=== PATIENT | male | born 1995 | race Caucasian/White ===

== ENCOUNTER → 2020-01-28 18:01 | Outpatient (BNVA) | payer OTHER, SELFPAY | PROVIDERS: Visit Provider Nurse Practitioner Family | DX: Z20.2 Contact with and (suspected) exposure to infections with a predominantly sexual mode of transmission (principal) | CPT/HCPCS: 87491; 87591 ==

== ENCOUNTER 2024-09-10 19:12 | Emergency (ER) | payer OTHER, SELFPAY ==
[2024-09-10 19:20] VITALS: BP 130/84; PULSE 71; RESP 16; TEMP 36.7; O2SAT 95; BMI 48.7
--- NOTE | 2024-09-10 20:05 | XRR_ITS ---
PROCEDURE INFORMATION: Exam: XR Chest Exam date and time: 09/10/2024 8:34 PM Age: 28 years old Clinical indication: Cough; Additional info: Cough, inhaled a mixure of bleach and toilet stone cleaner TECHNIQUE: Imaging protocol: Radiologic exam of the chest. Views: 2 views. COMPARISON: No relevant prior studies available. FINDINGS: Lungs: Unremarkable. No consolidation. Pleural spaces: Unremarkable. No pleural effusion. No pneumothorax. Heart/Mediastinum: Unremarkable. No cardiomegaly. Bones/joints: Unremarkable. XR/XR chest 2V* [id number] IMPRESSION: 1. No acute findings. 2. No opacities. No interstitial markings. No pulmonary edema.
--- NOTE | 2024-09-10 20:58 | W.ED.SOB ---
HPI - SOB/Dyspnea General: Chief Complaint: Shortness of Breath/Dyspnea Stated Complaint: trouble breathing inhaled chemicals Time Seen by Provider: 09/10/24 19:30 Source: patient Mode of arrival: ambulatory Limitations: no limitations History of Present Illness: HPI Narrative: Patient is a 28-year-old male with a history of asthma that presents to the emergency department with shortness of breath and some coughing. Patient reports that he was cleaning a bathroom today, he put some bleach in the toilet and left it for several minutes. He returned, and forgot he up with the bleach in the toilet, and added some toilet bowl grave cleaner. He states the fumes irritated his lungs and he has been coughing and short of breath since then. He states the symptoms are starting to resolve now. He denies any fever or chills. He denies any nausea or vomiting. He denies any known wheezing but does report some shortness of breath that is improving. He presents to the emergency department for further evaluation and treatment. Associated symptoms: Deny abdominal pain, extremity pain, fever(s), nausea, polydipsia, polyuria, syncope or vomiting Related Data Previous Rx's ?Medication ?Instructions ?Recorded albuterol sulfate 90 mcg/actuation 2 inh inhalation .q4-6h PRN 09/10/24 aerosol inhaler (Ventolin HFA) shortness of breath or wheezing #6.7 grams Allergies Allergy/AdvReac Type Severity Reaction Status Date / Time No Known Allergies Allergy Verified 01/28/20 16:18 Review of Systems General: Reports: 10 or more systems reviewed and unremarkable except in HPI and below Const: Denies: fever(s) or chills Eyes: Denies: eye discharge or eye redness ENMT: Reports: throat pain (Mild, improving); Denies: hoarseness, swelling of lips/tongue or ear or mastoid pain Card: Reports: other (Generalized shortness of breath that is improving); Denies: syncope or pre-syncope Resp: Reports: dyspnea and non-productive cough; Denies: wheezing GI: Denies: abdominal pain, nausea or vomiting : Denies: flank pain or difficulty urinating Musc: Denies: neck pain, back pain or extremity pain Skin/Breast: Denies: rash or erythema Neuro: Denies: headache(s), numbness in extremities or weakness in extremities Psych: Denies: anxiety or depression Endo: Denies: polyuria or polydipsia Zoran/Lymph: Denies: easy bruising, easy bleeding or petechiae All/Imm: Denies: urticaria, throat swelling or tongue swelling PFSH ED PFSH: Medical History (Updated 09/10/24 @ 21:43 by LESLEY Toro) History of asthma Social History Smoking and tobacco/nicotine status: never used tobacco/nicotine Physical Exam Const: COMMON NORMALS: no acute distress and patient oriented x3 EXAM LIMITATIONS: no altered mental status GENERAL APPEARANCE: cooperative ORIENTATION/CONSCIOUSNESS: Yes awake HENMT: COMMON NORMALS: normocephalic, atraumatic, external ears normal and Normal external nose present HEAD & SCALP: normocephalic and atraumatic FACE & SINUS: normal facial exam NOSE: Normal external nose present EXTERNAL EAR: Yes external ears normal MOUTH: Normal oral and palatal mucosa present (No throat swelling), lip normal and tongue normal; no audible dysphonia, no drooling, no mouth trauma and no muffled voice Eye: COMMON NORMALS: conjunctivae normal CONJUNCTIVA: Yes conjunctivae normal Neck/C-Spine: COMMON NORMALS: full ROM and supple Resp: COMMON NORMALS: normal respiratory effort, No retractions and clear to auscultation bilaterally AUSCULTATION: clear to auscultation bilaterally, no crackles, no rales, no rhonchi and no wheezes (No wheezes at this time but the patient does report a hx of asthma) Cardio: COMMON NORMALS: regular rate and regular rhythm RATE: regular rate RHYTHM: regular rhythm : COMMON NORMALS: Yes no CVA tenderness BLADDER/KIDNEY EXAM: Yes no CVA tenderness Back/Pelvis: COMMON NORMALS: no CVA tenderness, no thoracic nor lumbar tenderness and thoraco-lumbar ROM normal Extremity: COMMON NORMALS: normal to inspection, full ROM, no calf tenderness and no pedal edema Neuro: COMMON NORMALS: patient oriented x3 Psych: COMMON NORMALS: mental status grossly normal Skin: COMMON NORMALS: no rashes or lesions noted, no jaundice and no petechiae GENERAL SKIN EXAM: no rashes or lesions noted Course Vital Signs: Vital signs: Vital Signs Temperature 98.0 F 09/10/24 19:20 Pulse Rate 71 09/10/24 19:20 Respiratory Rate 16 09/10/24 19:20 Blood Pressure 130/84 09/10/24 19:20 Pulse Oximetry 95 09/10/24 19:20 Oxygen Delivery Me thod Room Air 09/10/24 19:20 MDM - SOB/Dyspnea Medical Decision Making Patient was advised of the exam and imaging findings. He states he is feeling better as time goes on. He does not have any wheezing at this time but states he does continue to have episodes of shortness of breath. He does have a history of asthma but does not have an albuterol inhaler at home. He was advised we could write him for an inhaler to use as directed if he gets short of breath still. I did recommend that he use [id number] Mucinex with plenty of water to help bring up any phlegm that may be left behind. I also advised that he follow-up with a primary care provider for further evaluation and treatment and return to the emergency department with any worsening symptoms. The patient expressed understanding. Lab Data Labs/Radiology: Radiology Impressions Chest X-Ray 09/10/24 20:05 IMPRESSION: 1. No acute findings. 2. No opacities. No interstitial markings. No pulmonary edema. All radiology interpretation(s) finalized by discharge Critical Care Time Critical Care Time: Critical Care Time: No Discharge Plan Discharge Patient Disposition: Home Clinical Impression: Acute bronchitis due to chemical fumes Condition: Stable Prescriptions: New albuterol sulfate [Ventolin HFA] 90 mcg/actuation HFA aerosol inhaler 2 inh inhalation .q4-6h PRN (Reason: shortness of breath or wheezing) Qty: 6.7 0RF Discharge Orders: Discharge ED (Routine); Ordered 09/10/24 Ordered By: Manoj Brothers Referrals: Erick Tapia MD [Primary Care Provider] - Discharge Diet: Usual diet Discharge Activity: Resume usual activity Patient Instructions: Opioid Safety, Pain Management, Acute Bronchitis (ED) Activity Restrictions/Additional Instructions: Use the inhaler as directed. Your prescription was sent electronically to the [facility] pharmacy in [place]. [id number] Mucinex with plenty of fluids. Follow-up with your doctor for further evaluation and treatment in 1 week. Return to the emergency department with any worsening symptoms. Print Language: Burkinan Coding Level of Care Code ED [employer] for Ar Cornelius
[2024-09-10 21:58] VITALS: BP 123/79; PULSE 75; RESP 16; O2SAT 97
== END 2024-09-10 22:02 | disposition home or self-care (01) ==
PROVIDERS: Emergency Provider Physician Assistant; PCP Internal Medicine Medical Oncology
DX: T54.91XA Toxic effect of unspecified corrosive substance, accidental (unintentional), initial encounter (principal); J68.0 Bronchitis and pneumonitis due to chemicals, gases, fumes and vapors; X58.XXXA Exposure to other specified factors, initial encounter
CPT/HCPCS: 12345; 71046; 99283